=== PATIENT | female | born 1965 | race Caucasian/White ===

== ENCOUNTER 2019-10-31 00:44 | Emergency (ER) | payer MEDICAID ==
[~2019-10-31] VITALS: Ht 157.5 cm; Wt 85.3 kg
[2019-10-31 00:48] VITALS: BP 118/79
[2019-10-31 01:22] LABS: BASOPHILS % (AUTO) 0.5 % (0.0-2.0); EOSINOPHILS # (AUTO) 0.4 K/uL (0-0.4); EOSINOPHILS % (AUTO) 4.5 % (0.0-4.0); HEMATOCRIT 36.9 % (36-48); HEMOGLOBIN 12.5 g/dL (12.0-16.0); LYMPHOCYTES # (AUTO) 3.2 K/uL (2.5-16.5); LYMPHOCYTES % (AUTO) 40.1 % (20.5-51.1); MEAN CORPUSCULAR HEMOGLOBIN 31 pg (27-31); MEAN CORPUSCULAR HGB CONC 34 g/dL (33-37); MEAN CORPUSCULAR VOLUME 89.8 fL (80-94); MONOCYTES # (AUTO) 0.5 K/uL (0.8-1.0); MONOCYTES % (AUTO) 6.6 % (1.7-9.3); NEUTROPHILS # (AUTO) 3.8 K/uL (1.8-7.7); NEUTROPHILS % (AUTO) 48.3 % (42.2-75.2); PLATELET COUNT (AUTO) 315 K/uL (140-450); RED BLOOD CELL COUNT(AUTO) 4.11 MIL/uL (4.20-5.40); RED CELL DISTRIBUTION WIDTH 13.4 % (11.6-13.7); WHITE BLOOD COUNT (AUTO) 7.9 K/uL (4.8-10.8)
[2019-10-31] MEDS: NACL 0.9% 500 ML IV ONE (01:36)
[2019-10-31] MEDS: ONDANSETRON 4 MG/2 ML VIAL IVP ONE (01:37)
[2019-10-31 01:39] LABS: ALBUMIN 3.6 g/dL (3.4-5.0); ANION GAP 13.5 (8-16); CARBON DIOXIDE 23.8 mmol/L (21-32); POTASSIUM 4.3 mmol/L (3.5-5.1); TOTAL BILIRUBIN 0.3 mg/dL (0.0-1.0)
[2019-10-31] MEDS: PANTOPRAZOLE 40 MG INJ VIAL IVP ONE (01:44)
[2019-10-31] MEDS: DICYCLOMINE HCL LIQUID 10 MG/5 ML UDC PO ONE (01:44)
[2019-10-31] MEDS: ALUMINUM HYD/MAG/SIMETHICONE 30 ML UDC PO ONE (01:45)
[2019-10-31] MEDS: LIDOCAINE VISCOUS 2% 20 ML UDC PO ONE (01:45)
[2019-10-31 02:11] VITALS: BP 117/68
== END 2019-10-31 02:11 | disposition home or self-care (01) ==
LOC: MED 00:44
DX: K29.70 Gastritis, unspecified, without bleeding (principal); E11.9 Type 2 diabetes mellitus without complications; I10 Essential (primary) hypertension; E07.9 Disorder of thyroid, unspecified
CPT/HCPCS: 36415; 71045; 80053; 81002; 81025; 83690; 84484; 85025; 93005; 96361; 96374; 96375; 99285; C9113; J2405; J7030; Q0092

== ENCOUNTER 2019-11-25 04:23 | Emergency (ER) | payer MEDICAID ==
[~2019-11-25] VITALS: Ht 160 cm; Wt 84.9 kg
[2019-11-25 04:30] VITALS: BP 120/82
--- NOTE | 2019-11-25 04:43 | NUR ---
ERMD VARGAS AT BEDSIDE EVALUATING PT.
--- NOTE | 2019-11-25 04:55 | NUR ---
54 Y/O F C/O FACIAL NUMBNESS X O1OO TODAY AND LT KNEE PAIN X1 YR. LT FACIAL NUMBNESS, ASYMMETRICAL SMILE, LOST OF MOTOR SENSORY ON LT SIDE OF FACE, SPEECH CLEAR. AAO X4. EQUAL STRENGTH AND SENSATION ON BUE AND BLE. LFT KNEE SHOWS SWELLING AND PAIN DURING PALPATION. NO OBVIOUS DEFORMITY ON KNEE OR EXTREMITIES. VSS. STEADY GAIT. ABD ACTIVE BOWEL SOUNDS, ROUND SOFT, EPIGASTRIC TENDERNESS. HX: DIABETES, HTN, HYPERTHYROID, GERD, SCIATICA ALLERGIES: NONE
[2019-11-25] MEDS ORDERED: DICYCLOMINE HCL LIQUID 20 MG, ALUMINUM HYD/MAG/SIMETHICONE 30 ML, LIDOCAINE VISCOUS 2% ... PO ONE ×3 (05:35)
[2019-11-25] MEDS ORDERED: LIDOCAINE VISCOUS 2% 20 ML UDC ONE (05:37)
[2019-11-25] MEDS ORDERED: DICYCLOMINE HCL LIQUID 10 MG/5 ML UDC ONE (05:38)
[2019-11-25] MEDS ORDERED: ALUMINUM HYD/MAG/SIMETHICONE 30 ML UDC ONE (05:38)
[2019-11-25 05:56] VITALS: BP 120/82
--- NOTE | 2019-11-25 05:56 | NUR ---
Patient discharged with v/s stable. Written and verbal after care instructions given and explained. Patient alert, oriented and verbalized understanding of instructions. Ambulatory with steady gait. All questions addressed prior to discharge. ID band removed. Patient advised to follow up with PMD. Rx of PREDNISONE, VISINE OPHTHALMIC SOLUTION, VALTREX given. Patient educated on indication of medication including possible reaction and side effects. Opportunity to ask questions provided and answered.
== END 2019-11-25 05:56 | disposition home or self-care (01) ==
LOC: MED 04:23
DX: G51.0 Bell's palsy (principal); M25.562 Pain in left knee; E11.9 Type 2 diabetes mellitus without complications; E07.9 Disorder of thyroid, unspecified; I10 Essential (primary) hypertension
CPT/HCPCS: 99283

== ENCOUNTER 2020-02-13 10:22 | Emergency (ER) | payer MEDICAID ==
[~2020-02-13] VITALS: Ht 160 cm; Wt 85.3 kg
[2020-02-13 10:28] VITALS: BP 114/70
--- NOTE | 2020-02-13 10:49 | NUR ---
54 Y/O FEMALE PRESENTED TO ED C/O LEFT KNEE PAIN X 5 DAYS . PT DENIES FALLING OR ANY TRAUMA TO KNEE. PT STATES IT HAS BEEN GETTING PROGRESSIVELY WORSE SINCE MONDAY AND WENT TO WORK THIS MORNING AND IT WAS REALLY SWOLLEN. OBSERVED SWELLING NOTED AROUND LEFT KNEE. PT STATES STABBING PAIN 10/10. PT C/O NUMBNESS AND TINGLING ON LEFT FEET. PEDAL PULSES BL STRONG +2 , CAP REFIL <3 SEC. PT DAUGHTER STATES SHE GAVE HER MOTHER IBUPROFEN AROUND 8 THIS MORNING . PT LAYING IN BED AT LOWEST POSITION, hob ELEVATED , SIDE RAIL X1 , DAUGHTER AT BEDSIDE. PMH: HTN, DM, hYPOTHY NKA
--- NOTE | 2020-02-13 10:57 | NUR ---
XRAY AT BEDSIDE.
[2020-02-13] MEDS ORDERED: LIDOCAINE/EPI 1% 1:100000 20 ML VIAL INJ ONE (11:30)
--- NOTE | 2020-02-13 11:31 | NUR ---
MEDICATION PULLED AT PUT AT BEDSIDE, DR. POSADA MADE AWARE.
--- NOTE | 2020-02-13 11:52 | NUR ---
ERMD AT BEDSIDE.
[2020-02-13 12:47] VITALS: BP 113/68
--- NOTE | 2020-02-13 12:47 | NUR ---
Patient discharged with v/s stable. Written and verbal after care instructions given and explained. Patient alert, oriented and verbalized understanding of instructions. Ambulatory with steady gait. All questions addressed prior to discharge. ID band removed. Patient advised to follow up with PMD. Rx of norco 5mg-325mg given. Patient educated on indication of medication including possible reaction and side effects. Opportunity to ask questions provided and answered.
== END 2020-02-13 12:47 | disposition home or self-care (01) ==
LOC: MED 10:22
DX: M17.12 Unilateral primary osteoarthritis, left knee (principal); E11.9 Type 2 diabetes mellitus without complications; I10 Essential (primary) hypertension
CPT/HCPCS: 20610; 73562; 99284; J2001; Q0092; 10021

== ENCOUNTER 2020-04-09 17:10 | Emergency (ER) | payer MEDICAID ==
[~2020-04-09] VITALS: Ht 157.5 cm; Wt 82.6 kg
[2020-04-09 17:14] VITALS: BP 143/78
--- NOTE | 2020-04-09 17:19 | NUR ---
PATIENT AMBULATED TO BED 6.
--- NOTE | 2020-04-09 17:27 | NUR ---
X-RAY IS AT BEDSIDE.
--- NOTE | 2020-04-09 17:30 | NUR ---
PT C/O LT KNEE PAIN SINCE YESTERDAY, DENIES TRAUMA/INJURY. REPORTS HAD KNEE EXPIRATION ONE MONTH AGO WITH YELLOWISH FLUID. SLIGHT EDEMA W/O ERYTHEMA OR DEFORMITY NOTICED. PT HAS REDUCED ROM ON PASSIVE MOVEMENT. CAN AMBULATE WITH STEADY GAIT. PT DENIES ANY FEVER, CP, SOB, OR COUGH AT THIS TIME; PATIENT STATES PAIN OF 10/10 AT THIS TIME; VSS; PATIENT POSITIONED FOR COMFORT; HOB ELEVATED; BEDRAILS UP X1; BED DOWN. ER MD MADE AWARE OF PT STATUS.
[2020-04-09 18:26] VITALS: BP 121/79
== END 2020-04-09 18:26 | disposition home or self-care (01) ==
LOC: MED 17:10
DX: M17.12 Unilateral primary osteoarthritis, left knee (principal); M25.462 Effusion, left knee; E07.9 Disorder of thyroid, unspecified; I10 Essential (primary) hypertension; E11.9 Type 2 diabetes mellitus without complications
CPT/HCPCS: 73562; 99283

== ENCOUNTER 2020-12-11 04:34 | Emergency (ER) | payer MEDICAID, SELFPAY ==
[~2020-12-11] VITALS: Ht 160 cm; Wt 81.6 kg
[~2020-12-11 04:34] MED LIST: CIPR500T4 PO; INSU100S22 SUBQ; LEVO0.179 PO; LISI-487 PO; METF1000 PO
[2020-12-11 04:42] VITALS: BP 117/76
--- NOTE | 2020-12-11 04:49 | NUR ---
PT AMBULATORY TO BED #1
--- NOTE | 2020-12-11 05:00 | NUR ---
PATIENT 55 Y/O FEMALE BIB SELF FOR C/O L KNEE PAIN 10. PATIENT STATES PAIN HAS BEEN CHRONIC X 1 YEAR BUT PAIN 10/10 X 1 DAY. PATIENT STATES HAD I&D DONE FROM KNEE X 1 YEAR AGO, "IT FEELS LIKE THE SAME THING IS HAPPENING AGAIN." PATIENT STATES PAIN IS PROVIOKED BY WALING. PATIENT DENIES ANY OTC MEDICATIONS TAKEN PRIOR TO ARRIVAL. PATIENT NOTED WITH SWELLING AROUND L KNEE. CMS INTACT, PEDAL PULSES STRONG AND EQUAL BILAT LE. CAP REFILL <3. PATIENT DENIES ANY FALL OR INJURY TO PRECIPITATE PAIN. MEDHX:DM TYPE II, HTN, HYPERTHYROID. ALLERGIES: NKA
--- NOTE | 2020-12-11 05:42 | NUR ---
ERMD AT BEDSIDE EVALUIATING PATIENT.
[2020-12-11] MEDS ORDERED: NAPR-54 PO (05:49)
--- NOTE | 2020-12-11 06:07 | NUR ---
REPORT RECEIVED FROM GALDINO COPPOLA
--- NOTE | 2020-12-11 06:10 | NUR ---
PT AMBULATED TO BED 12
[2020-12-11 06:30] VITALS: BP 117/76
== END 2020-12-11 06:30 | disposition home or self-care (01) ==
LOC: MED 04:34
DX: M17.12 Unilateral primary osteoarthritis, left knee (principal); E11.9 Type 2 diabetes mellitus without complications; I10 Essential (primary) hypertension; E07.9 Disorder of thyroid, unspecified; Z79.899 Other long term (current) drug therapy
CPT/HCPCS: 99282

== ENCOUNTER 2021-04-14 11:55 | Emergency (ER) | payer MEDICAID, SELFPAY ==
[~2021-04-14] VITALS: Ht 160 cm; Wt 81.2 kg
[~2021-04-14 11:55] MED LIST changes: +NAPR-54 PO
[2021-04-14 12:00] VITALS: BP 140/94
[2021-04-14] MEDS ORDERED: FAMOTIDINE 20 MG TAB PO ONE (12:25)
[2021-04-14] MEDS ORDERED: ONDANSETRON 4 MG ODT PO ONE (12:25)
[2021-04-14] MEDS ORDERED: FAMOTIDINE 20 MG TAB ONE (12:27)
[2021-04-14] MEDS ORDERED: ONDANSETRON 4 MG ODT ONE (12:27)
--- NOTE | 2021-04-14 12:40 | NUR ---
LABS DRAWN AND SENT TO LAB.
--- NOTE | 2021-04-14 12:45 | NUR ---
PT MEDICATED AND SENT BACK TO LOBBY TO WAIT FOR AVAILABLE BED.
[2021-04-14 12:50] LABS: BASOPHILS % (AUTO) 0.5 % (0.0-2.0); EOSINOPHILS # (AUTO) 0.1 K/uL (0-0.4); EOSINOPHILS % (AUTO) 1.3 % (0.0-4.0); HEMATOCRIT 37.9 % (36-48); HEMOGLOBIN 12.7 g/dL (12.0-16.0); LYMPHOCYTES # (AUTO) 1.9 K/uL (2.5-16.5); LYMPHOCYTES % (AUTO) 22.1 % (20.5-51.1); MEAN CORPUSCULAR HEMOGLOBIN 31 pg (27-31); MEAN CORPUSCULAR HGB CONC 34 g/dL (33-37); MONOCYTES # (AUTO) 0.3 K/uL (0.8-1.0); MONOCYTES % (AUTO) 3.6 % (1.7-9.3); NEUTROPHILS # (AUTO) 6.2 K/uL (1.8-7.7); NEUTROPHILS % (AUTO) 72.5 % (42.2-75.2); PLATELET COUNT (AUTO) 414 K/uL (140-450); RED BLOOD CELL COUNT(AUTO) 4.11 MIL/uL (4.20-5.40); RED CELL DISTRIBUTION WIDTH 13.6 % (11.6-13.7); WHITE BLOOD COUNT (AUTO) 8.5 K/uL (4.8-10.8)
[2021-04-14 13:05] LABS: ALBUMIN 3.7 g/dL (3.4-5.0); ANION GAP 12.5 (8-16); CREATININE 1.3 mg/dL (0.6-1.3); POTASSIUM 4.5 mmol/L (3.5-5.1); TOTAL BILIRUBIN 0.4 mg/dL (0.0-1.0)
[2021-04-14] MEDS ORDERED: FAMO-92 PO (14:21)
[2021-04-14] MEDS ORDERED: ONDA-24 PO (14:21)
--- NOTE | 2021-04-14 14:41 | NUR ---
Patient discharged with v/s stable. Written and verbal after care instructions given and explained. Patient alert, oriented and verbalized understanding of instructions. Ambulatory with steady gait. All questions addressed prior to discharge. ID band removed. Patient advised to follow up with PMD. Rx of FAMOTIDINE, ONDANSETRON given. Patient educated on indication of medication including possible reaction and side effects. Opportunity to ask questions provided and answered.
[2021-04-14 14:44] VITALS: BP 140/94
--- NOTE | 2021-04-14 14:44 | NUR ---
55 Y/O F BIB FAMILY FROM HOME, C/O EPIGASTRIC PAIN WITH N&V 4 DAYS 10 SHARP. DENIES SOB, COUGH, CP, FEVERS, DYSURIA, DIARRHEA OR CONSTIPATION. SKIN IS PINK/WARM/DRY; AAOX4 WITH EVEN AND STEADY GAIT; LUNGS CLEAR BL; HR EVEN AND REGULAR; PT DENIES ANY FEVER, CP, SOB, OR COUGH AT THIS TIME; VSS; ER MD MADE AWARE OF PT STATUS. PMH: HTN, DM2, HYPERTHYROID MED: METFORMIN NKA
== END 2021-04-14 14:41 | disposition home or self-care (01) ==
LOC: MED 11:55
DX: K29.70 Gastritis, unspecified, without bleeding (principal); R11.0 Nausea; E11.9 Type 2 diabetes mellitus without complications; I10 Essential (primary) hypertension; E07.9 Disorder of thyroid, unspecified; Z79.4 Long term (current) use of insulin; Z79.899 Other long term (current) drug therapy; Z98.890 Other specified postprocedural states
CPT/HCPCS: 36415; 76705; 80053; 83690; 85025; 99284; Q0162

== ENCOUNTER 2022-02-14 16:40 | Emergency (ER) | payer MEDICAID ==
[~2022-02-14] VITALS: Ht 160 cm; Wt 81.2 kg
[~2022-02-14 16:40] MED LIST changes: +FAMO-92 PO; +METF-1274 PO; -METF1000 PO; +ONDA-188 PO
[2022-02-14 16:47] VITALS: BP 132/81
[2022-02-14 17:21] LABS: BASOPHILS % (AUTO) 0.5 % (0.0-2.0); EOSINOPHILS # (AUTO) 0.3 K/uL (0-0.4); EOSINOPHILS % (AUTO) 3.6 % (0.0-4.0); HEMATOCRIT 40.2 % (36-48); HEMOGLOBIN 13.4 g/dL (12.0-16.0); LYMPHOCYTES # (AUTO) 2.8 K/uL (2.5-16.5); LYMPHOCYTES % (AUTO) 31.1 % (20.5-51.1); MEAN CORPUSCULAR HEMOGLOBIN 30 pg (27-31); MEAN CORPUSCULAR HGB CONC 34 g/dL (33-37); MEAN CORPUSCULAR VOLUME 88.8 fL (80-94); MONOCYTES # (AUTO) 0.5 K/uL (0.8-1.0); MONOCYTES % (AUTO) 6.2 % (1.7-9.3); NEUTROPHILS # (AUTO) 5.2 K/uL (1.8-7.7); NEUTROPHILS % (AUTO) 58.6 % (42.2-75.2); PLATELET COUNT (AUTO) 327 K/uL (140-450); RED BLOOD CELL COUNT(AUTO) 4.52 MIL/uL (4.20-5.40); RED CELL DISTRIBUTION WIDTH 14.1 % (11.6-13.7); WHITE BLOOD COUNT (AUTO) 8.9 K/uL (4.8-10.8)
[2022-02-14 19:14] LABS: ALBUMIN 3.7 g/dL (3.4-5.0); ANION GAP 16.8 (8-16); CARBON DIOXIDE 23.3 mmol/L (21-32); CREATININE 1.7 mg/dL (0.6-1.3); POTASSIUM 5.1 mmol/L (3.5-5.1); TOTAL BILIRUBIN 0.3 mg/dL (0.0-1.0)
--- NOTE | 2022-02-14 19:36 | NUR ---
PT TAKEN TO BED 1
[2022-02-14] MEDS ORDERED: FAMOTIDINE 20 MG/2 ML VIAL IVP ONE (19:40)
[2022-02-14] MEDS ORDERED: ONDANSETRON 4 MG/2 ML VIAL IVP ONE (19:40)
[2022-02-14] MEDS ORDERED: NACL 0.9% 1,000 ML IV ONE (19:40)
[2022-02-14] MEDS ORDERED: SUCRALFATE 1 GM TAB PO SCH (19:40)
--- NOTE | 2022-02-14 19:50 | NUR ---
56/F C/O EPIGASTRIC PAIN AND NAUSEA X4 DAYS, REPORTS ONE EPISODE OF VOMITING YESTERDAY. STATES SHE TOOK MEDICATION FOR SYMPTOMS WITH NO RELIEF, DENIES DIARRHEA, CP, SOB. VITALS WNL, A&OX4 PMH: HTN, DM, THYROID NKA
[2022-02-14] MEDS ORDERED: BLOOD GLUCOSE MONITORING 1 DEV DEV FS ONE (19:55)
[2022-02-14] MEDS ORDERED: INSULIN LISPRO 100 UNITS/ML VIAL SUBQ ONE (19:55)
[2022-02-14] MEDS ORDERED: SUCR1TAB35 PO (20:53)
[2022-02-14] MEDS ORDERED: PANT40EC PO (20:53)
[2022-02-14 21:19] VITALS: BP 132/81
--- NOTE | 2022-02-14 21:20 | NUR ---
Patient discharged with v/s stable. Written and verbal after care instructions given and explained. Patient alert, oriented and verbalized understanding of instructions. Ambulatory with steady gait. All questions addressed prior to discharge. ID band removed. Patient advised to follow up with PMD. Rx of PROTONIX AND CARAFATE given. Patient educated on indication of medication including possible reaction and side effects. Opportunity to ask questions provided and answered.
== END 2022-02-14 21:20 | disposition home or self-care (01) ==
LOC: MED 16:40
DX: K29.70 Gastritis, unspecified, without bleeding (principal); E11.65 Type 2 diabetes mellitus with hyperglycemia; I10 Essential (primary) hypertension; E03.9 Hypothyroidism, unspecified; Z79.4 Long term (current) use of insulin; Z90.710 Acquired absence of both cervix and uterus
CPT/HCPCS: 36415; 80053; 83690; 85025; 96361; 96372; 96374; 96375; 99284; J1815; J2405; J3490; J7030

== ENCOUNTER 2022-07-12 11:36 | Emergency (ER) | payer MEDICAID ==
[~2022-07-12] VITALS: Ht 160 cm; Wt 84.8 kg
[~2022-07-12 11:36] MED LIST changes: +PANT40EC PO; +SUCR1TAB35 PO
[2022-07-12 11:45] VITALS: BP 151/93
--- NOTE | 2022-07-12 11:59 | NUR ---
PATIENT AMBULATED TO BED 10
--- NOTE | 2022-07-12 12:00 | NUR ---
Dr. Draper at bedside evaluating patient.
[2022-07-12] MEDS ORDERED: BACITRACIN OINT 500 UNITS/GM PKT TP ONE (12:05)
[2022-07-12] MEDS ORDERED: LIDOCAINE MPF 1% 10 MG/ML VIAL INJ ONE (12:05)
--- NOTE | 2022-07-12 13:05 | NUR ---
Patient taken via guyney for CT scan, Kylah RN with patient.
--- NOTE | 2022-07-12 13:07 | NUR ---
Babatunde munoz in ED - 07/12/[address] Drapre at bedside evaluating patient.
[2022-07-12] MEDS ORDERED: BACI1PAC6 TP (13:33)
[2022-07-12] MEDS ORDERED: CEPH-588 PO (13:33)
[2022-07-12] MEDS ORDERED: ACET-10509 PO (13:33)
--- NOTE | 2022-07-12 13:38 | NUR ---
57/Y/O FEMALE BIB SELF C/O LACERATION TO LEFT INDEX FINGER WHILE USING A KNIFE AT WORK, BLEEDING CONTROLLED WITH PRESSURE, NOTED OOZING BLOOD. NON-ADHERENT WITH COBAN PLACED ON AREA FOR PRESSURE PER ERMD. PMH: HTN, DM, THYROID NKDA
--- NOTE | 2022-07-12 13:41 | NUR ---
NON ADHERENT PLACED ON L INDEX FINGER. + CMS
--- NOTE | 2022-07-12 14:01 | NUR ---
Patient discharged with v/s stable. Written and verbal after care instructions ABOUT LACERATION CARE given and explained. Patient alert, oriented and verbalized understanding of instructions. Ambulatory with steady gait. All questions addressed prior to discharge. ID band removed. Patient advised to follow up with PMD. Rx of TYLENOL EXTRA STRENGTH, KEFLEX AND BACITRACIN OINTMENT given. Patient educated on indication of medication including possible reaction and side effects. Opportunity to ask questions provided and answered.
== END 2022-07-12 14:01 | disposition home or self-care (01) ==
LOC: MED 11:36
DX: S61.211A Laceration without foreign body of left index finger without damage to nail, initial encounter (principal); W26.0XXA Contact with knife, initial encounter; Y93.89 Activity, other specified; Y92.89 Other specified places as the place of occurrence of the external cause; Y99.8 Other external cause status
CPT/HCPCS: 12001; 90471; 90715; 99283; J2001

== ENCOUNTER 2022-07-14 10:13 | Emergency (ER) | payer MEDICAID ==
[~2022-07-14] VITALS: Ht 160 cm; Wt 84.5 kg
[~2022-07-14 10:13] MED LIST changes: +ACET-10509 PO; +BACI1PAC6 TP; +CEPH-588 PO
[2022-07-14 10:20] VITALS: BP 137/96
--- NOTE | 2022-07-14 10:28 | NUR ---
PT AMB TO BED 4.
--- NOTE | 2022-07-14 11:16 | NUR ---
Patient discharged with v/s stable. Written and verbal after care instructions given and explained. Patient verbalized understanding. Ambulatory with steady gait. All questions addressed prior to discharge. Advised to follow up with PMD.
== END 2022-07-14 11:17 | disposition home or self-care (01) ==
LOC: MED 10:13
DX: S61.211D Laceration without foreign body of left index finger without damage to nail, subsequent encounter (principal); E11.9 Type 2 diabetes mellitus without complications; I10 Essential (primary) hypertension; Z79.899 Other long term (current) drug therapy; Z79.2 Long term (current) use of antibiotics; Z79.1 Long term (current) use of non-steroidal anti-inflammatories (NSAID); Z79.4 Long term (current) use of insulin; W45.8XXD Other foreign body or object entering through skin, subsequent encounter
CPT/HCPCS: 99281

== ENCOUNTER 2022-07-21 14:30 | Emergency (ER) | payer MEDICAID ==
[~2022-07-21] VITALS: Ht 157.5 cm; Wt 85.3 kg
[2022-07-21 14:36] VITALS: BP 140/90
--- NOTE | 2022-07-21 14:51 | NUR ---
57/F WALKED IN FOR SUTURE REMOVAL OF LEFT HAND 2ND DIGIT. PT WAS SEEN 10 DAYS AGO FOR LAC. DENIES ANY COMPLICATIONS SINCE LAST VISIT. SITE DOES NOT APPEAR SWOLLEN, NO DISCHARGE NOTED. AAO4, AMBULATORY, VITALS STABLE. pmh: htn, dm2 nka med: denies
== END 2022-07-21 15:10 | disposition home or self-care (01) ==
LOC: MED 14:30
DX: S61.211D Laceration without foreign body of left index finger without damage to nail, subsequent encounter (principal); E11.9 Type 2 diabetes mellitus without complications; I10 Essential (primary) hypertension; Z79.899 Other long term (current) drug therapy; Z79.4 Long term (current) use of insulin; X58.XXXD Exposure to other specified factors, subsequent encounter
CPT/HCPCS: 99281

== ENCOUNTER 2022-08-23 17:46 | Inpatient (IN) | payer MEDICAID ==
[~2022-08-23] VITALS: Ht 160 cm; Wt 82.6 kg
[~2022-08-23 17:46] MED LIST changes: +BACI-416 TP; -BACI1PAC6 TP
[2022-08-23 18:07] VITALS: BP 140/102
[2022-08-23] MEDS ORDERED: NACL 0.9% 1,000 ML IV ONE ×2 (18:10→21:40)
[2022-08-23 18:57] LABS: BASOPHILS # (AUTO) 0.1 K/uL (0.00-0.22); BASOPHILS % (AUTO) 0.6 % (0.0-2.0); EOSINOPHILS # (AUTO) 0.4 K/uL (0-0.4); EOSINOPHILS % (AUTO) 3.9 % (0.0-4.0); HEMATOCRIT 33.8 % (36-48); HEMOGLOBIN 11.4 g/dL (12.0-16.0); LYMPHOCYTES # (AUTO) 3.3 K/uL (2.5-16.5); LYMPHOCYTES % (AUTO) 30.9 % (20.5-51.1); MEAN CORPUSCULAR HEMOGLOBIN 30 pg (27-31); MEAN CORPUSCULAR HGB CONC 34 g/dL (33-37); MEAN CORPUSCULAR VOLUME 89.4 fL (80-94); MONOCYTES # (AUTO) 0.7 K/uL (0.8-1.0); NEUTROPHILS # (AUTO) 6.1 K/uL (1.8-7.7); NEUTROPHILS % (AUTO) 57.6 % (42.2-75.2); PLATELET COUNT (AUTO) 358 K/uL (140-450); RED BLOOD CELL COUNT(AUTO) 3.78 MIL/uL (4.20-5.40); RED CELL DISTRIBUTION WIDTH 14.1 % (11.6-13.7); WHITE BLOOD COUNT (AUTO) 10.5 K/uL (4.8-10.8)
[2022-08-23 19:19] LABS: ALBUMIN 2.8 g/dL (3.4-5.0); ANION GAP 13.6 (8-16); ASPARTATE AMINOTRANSFERASE 33 U/L (15-37); CARBON DIOXIDE 26.7 mmol/L (21-32); CHLORIDE 97 mmol/L (98-107); CREATININE 1.9 mg/dL (0.6-1.3); GFR ARICAN-AMERICAN 35 mL/min (>90); POTASSIUM 4.3 mmol/L (3.5-5.1); SODIUM SERUM 133 mmol/L (136-145); TOTAL BILIRUBIN 0.3 mg/dL (0.0-1.0); UREA NITROGEN, BLOOD 25 mg/dL (7-18)
[2022-08-23 19:21] LABS: GLUCOSE 461 mg/dL (74-106)
--- NOTE | 2022-08-23 19:45 | NUR ---
Assumed care of pt and pt is in bed resting with no s/s of distress. A&Ox4. VSS. Pt has no c/o at this time. Skin intact. Ambualtory with steady gait. Deneis n.v. No chest pain and no sob. Has a 22g IV on right forearm intact no infiltration noted. Bed in lowest position.
[2022-08-23] MEDS ORDERED: INSULIN REGULAR, HUMAN 100 UNIT/ML VIAL IVP ONE (19:50)
--- NOTE | 2022-08-23 20:00 | NUR ---
Urine collected and sent to lab.
[2022-08-23 20:05] LABS: ACETONE, SERUM NEGATIVE (NEGATIVE)
[2022-08-23 20:26] LABS: BILIRUBIN,URINE NEGATIVE (NEGATIVE); BLOOD, URINE TRACE-I (NEGATIVE); COLOR,URINE YELLOW (YELLOW); LEUKOCYTE ESTERASE ,URINE 1+ (NEGATIVE); NITRITE, URINE NEGATIVE (NEGATIVE); UGLUCOSE 3+ (NEGATIVE)
[2022-08-23 20:44] LABS: APPEARANCE,URINE HAZY (CLEAR)
--- NOTE | 2022-08-23 20:46 | NUR ---
Covid and flu swab sent to lab.
[2022-08-23] MEDS ORDERED: INSULIN REGULAR, HUMAN 100 UNIT/ML VIAL SUBQ ONE (21:40)
--- NOTE | 2022-08-23 21:41 | NUR ---
Accucheck done and results were 411. ER physician notified.
[2022-08-23 21:46] LABS: RBC,URINE 0-5 /HPF (0-5); YEAST,URINE Few /HPF (None Seen)
--- NOTE | 2022-08-23 23:11 | NUR ---
Accucheck done and results were 341. ER physician notified.
[2022-08-24] MEDS ORDERED: DEXTROSE 50% 50 ML SYR IVP PRN (00:05)
[2022-08-24] MEDS ORDERED: ONDANSETRON 4 MG/2 ML VIAL IVP PRN (00:05)
[2022-08-24] MEDS: NACL 0.9% 1,000 ML IV SCH ×3 (00:48→20:05)
[2022-08-24] MEDS ORDERED: EMPA10TA PO (01:05)
[2022-08-24] MEDS ORDERED: LISI40TA12 PO (01:05)
--- NOTE | 2022-08-24 01:05 | NUR ---
Medication reconciliation completed and was provided by patients family.
--- NOTE | 2022-08-24 04:44 | NUR ---
Pt resting in bed with no s/s of distress. Pt has no c/o at this time. A&Ox4. VSS.
[2022-08-24] MEDS ORDERED: LEVOTHYROXINE 0.075 MG TAB PO SCH (06:30)
[2022-08-24] MEDS: LEVOTHYROXINE 0.1 MG TAB PO SCH (06:52)
--- NOTE | 2022-08-24 07:18 | NUR ---
Received report from GALDINO Lagos. Assumed care at this.
[2022-08-24] MEDS ORDERED: metFORMIN 500 MG TAB PO SCH (08:00)
[2022-08-24] MEDS: LEVOTHYROXINE 0.075 MG TAB PO SCH (08:05)
[2022-08-24] MEDS: BLOOD GLUCOSE MONITORING 1 DEV DEV FS SCH ×4 (08:06→21:18)
[2022-08-24] MEDS: INSULIN LISPRO SLIDING SCALE 100 UNITS/ML VIAL SUBQ PRN ×4 (08:16→21:25)
--- NOTE | 2022-08-24 08:32 | NUR ---
ADPatient will be admitted to care of DR BLACK. Admited to Med/Surg. Will go to room 106A. Belongings list completed. Report to GALDINO MORENO.
[2022-08-24] MEDS ORDERED: ENOXAPARIN 40 MG/0.4 ML SYR SUBQ SCH (09:00)
[2022-08-24] MEDS: PANTOPRAZOLE 40 MG TABEC PO SCH (09:57)
[2022-08-24] MEDS: lisinopriL 20 MG TAB PO SCH (09:57)
[2022-08-24] MEDS: ENOXAPARIN 30 MG/0.3 ML SYR SUBQ SCH (09:58)
[2022-08-24 10:42] LABS: ANION GAP 11.7 (8-16); CARBON DIOXIDE 25.8 mmol/L (21-32); CREATININE 1.8 mg/dL (0.6-1.3); POTASSIUM 5.5 mmol/L (3.5-5.1)
[2022-08-24 10:51] LABS: BASOPHILS # (AUTO) 0.1 K/uL (0.00-0.22); EOSINOPHILS # (AUTO) 0.3 K/uL (0-0.4); EOSINOPHILS % (AUTO) 3.8 % (0.0-4.0); HEMATOCRIT 32.5 % (36-48); HEMOGLOBIN 10.8 g/dL (12.0-16.0); LYMPHOCYTES # (AUTO) 2.5 K/uL (2.5-16.5); LYMPHOCYTES % (AUTO) 27.4 % (20.5-51.1); MEAN CORPUSCULAR HEMOGLOBIN 30 pg (27-31); MEAN CORPUSCULAR HGB CONC 33 g/dL (33-37); MEAN CORPUSCULAR VOLUME 91.5 fL (80-94); MONOCYTES # (AUTO) 0.6 K/uL (0.8-1.0); MONOCYTES % (AUTO) 6.6 % (1.7-9.3); NEUTROPHILS # (AUTO) 5.5 K/uL (1.8-7.7); NEUTROPHILS % (AUTO) 61.2 % (42.2-75.2); PLATELET COUNT (AUTO) 368 K/uL (140-450); RED BLOOD CELL COUNT(AUTO) 3.55 MIL/uL (4.20-5.40); RED CELL DISTRIBUTION WIDTH 14.8 % (11.6-13.7); WHITE BLOOD COUNT (AUTO) 9.1 K/uL (4.8-10.8)
--- NOTE | 2022-08-24 11:52 | NUR ---
PATIENT HAS BEEN SCREENED AND CATEGORIZED MODERATE NUTRITION RISK. PATIENT WILL BE SEEN WITHIN 3-5 DAYS OF ADMISSION. 08/27/2212/19/[address]
[2022-08-24 12:00] VITALS: BP 128/81
[2022-08-24] MEDS: ACETAMINOPHEN 325 MG TAB PO PRN ×2 (12:16→22:55)
[2022-08-24 16:00] VITALS: BP 132/68
--- NOTE | 2022-08-24 19:30 | NUR ---
RECEIVED REPORT FROM DAY SHIFT NURSE TIFFANIE FOR CONTINUITY OF CARE. PATIENT IS A&O X4. PATIENT IS ON ROOM AIR, BREATHING IS NORMAL WITH SYMMETRICAL RISE AND FALL OF CHEST. PATIENT'S IV IS A 22G RFA, RUNNING NS 100. PATIENT IS SLEEPING, LYING SUPINE ON HER SIDE. BED IS IN LOWEST POSITION, WHEELS LOCKED, CALL LIGHT IN PLACE. WILL CONTINUE TO OBSERVE PATIENT.
[2022-08-24 20:00] VITALS: BP 105/63
[2022-08-24] MEDS ORDERED: INSULIN LANTUS 100 UNITS/ML 10 ML VIAL SUBQ SCH (21:00)
--- NOTE | 2022-08-24 21:30 | NUR ---
OBTAINED PATIENT'S BS; BS WAS 270, ADMINISTERED 6 UNITS OF HUMALOG FOR COVERAGE. ADMINISTER PATIENT'S SCHEDULED LANTUS 30 UNITS. PATIENT TOLERATED INJECTIONS WELL. WILL CONTINUE TO OBSERVE PATIENT.
--- NOTE | 2022-08-24 23:00 | NUR ---
PATIENT CALLED AND REQUESTED TYLENOL FOR HEADACHE. CHECKED PATIENT'S CHART, TYLENOL WAS APPROPRIATE TO GIVE. ADMINISTERED TYLENOL TO PATIENT. PATIENT TOLERATED WELL. PATIENT'S BREATHING IS NORMAL WITH SYMMETRICAL RISE AND FALL OF CHEST. WILL CONTINUE TO OBSERVE PATIENT.
--- NOTE | 2022-08-25 00:30 | NUR ---
LOOKED IN ON PATIENT. PATIENT WAS SLEEPING, LYING IN SEMI-FOWLERS POSITION. BREATHING WAS NORMAL WITH SYMMETRICAL RISE AND FALL OF CHEST. IV WAS RUNNING NS AT 100. WILL CONTINUE TO OBSERVE PATIENT.
[2022-08-25] MEDS: NACL 0.9% 1,000 ML IV SCH (02:18)
--- NOTE | 2022-08-25 02:22 | NUR ---
WENT INTO PATIENT'S ROOM AND CHANGED PATIENT'S IV BAG. IV IS RUNNING NS AT 100. PATIENT IS SLEEPING, LYING SEMI-FOWLERS. BREATHING IS NORMAL WITH SYMMETRICAL RISE AND FALL OF CHEST. WILL CONTINUE TO OBSERVE PATIENT.
[2022-08-25 04:00] VITALS: BP 106/69
--- NOTE | 2022-08-25 04:45 | NUR ---
LOOKED IN ON PATIENT. PATIENT WAS SLEEPING, LYING SEMI-FOWLERS POSITION. BREATHING WAS NORMAL WITH SYMMETRICAL RISE AND FALL OF CHEST. IV WAS RUNNING NS 100. WILL CONTINUE TO OBSERVE PATIENT.
[2022-08-25 06:36] LABS: BASOPHILS # (AUTO) 0.1 K/uL (0.00-0.22); BASOPHILS % (AUTO) 0.6 % (0.0-2.0); EOSINOPHILS # (AUTO) 0.4 K/uL (0-0.4); EOSINOPHILS % (AUTO) 4.5 % (0.0-4.0); HEMATOCRIT 34.8 % (36-48); HEMOGLOBIN 11.7 g/dL (12.0-16.0); LYMPHOCYTES # (AUTO) 2.3 K/uL (2.5-16.5); LYMPHOCYTES % (AUTO) 28.4 % (20.5-51.1); MEAN CORPUSCULAR HEMOGLOBIN 30 pg (27-31); MEAN CORPUSCULAR HGB CONC 34 g/dL (33-37); MEAN CORPUSCULAR VOLUME 89.8 fL (80-94); MONOCYTES # (AUTO) 0.5 K/uL (0.8-1.0); MONOCYTES % (AUTO) 6.7 % (1.7-9.3); NEUTROPHILS # (AUTO) 4.8 K/uL (1.8-7.7); NEUTROPHILS % (AUTO) 59.8 % (42.2-75.2); PLATELET COUNT (AUTO) 348 K/uL (140-450); RED BLOOD CELL COUNT(AUTO) 3.88 MIL/uL (4.20-5.40); RED CELL DISTRIBUTION WIDTH 14.4 % (11.6-13.7)
[2022-08-25] MEDS: LEVOTHYROXINE 0.075 MG TAB PO SCH (06:40)
[2022-08-25] MEDS: LEVOTHYROXINE 0.1 MG TAB PO SCH (06:40)
[2022-08-25] MEDS: BLOOD GLUCOSE MONITORING 1 DEV DEV FS SCH ×3 (06:48→16:50)
[2022-08-25] MEDS: INSULIN LISPRO SLIDING SCALE 100 UNITS/ML VIAL SUBQ PRN ×2 (06:48→12:19)
--- NOTE | 2022-08-25 07:00 | NUR ---
OBTAINED BS; BS WAS 261, GAVE 6 UNITS. PATIENT TOLERATED WELL. ADMINISTERED SYNTHROID TO PATIENT. PATIENT TOLERATED WELL WITHOUT ANY ISSUES IN SWALLOWING. PATIENT'S BREATHING IS NORMAL WITH SYMMETRICAL RISE AND FALL OF CHEST. WILL CONTINUE TO OBSERVE PATIENT.
--- NOTE | 2022-08-25 07:30 | NUR ---
ENDORSED TO DAY SHIFT NURSE ADZE FOR CONTINUITY OF CARE. PATIENT IS STABLE.
[2022-08-25 07:39] LABS: ALBUMIN 2.4 g/dL (3.4-5.0); ANION GAP 13.5 (8-16); CARBON DIOXIDE 25.5 mmol/L (21-32); CREATININE 1.6 mg/dL (0.6-1.3); MAGNESIUM 1.3 mg/dL (1.8-2.4); TOTAL BILIRUBIN 0.3 mg/dL (0.0-1.0)
[2022-08-25] MEDS: ENOXAPARIN 30 MG/0.3 ML SYR SUBQ SCH (09:00)
[2022-08-25] MEDS ORDERED: MAG SULF 2000 MG/WATER PREMIX 50 ML IV PRN (09:50)
[2022-08-25] MEDS ORDERED: INSULIN LISPRO 100 UNITS/ML VIAL SUBQ SCH (10:00)
[2022-08-25] MEDS: PANTOPRAZOLE 40 MG TABEC PO SCH (10:09)
[2022-08-25] MEDS: lisinopriL 20 MG TAB PO SCH (10:10)
--- NOTE | 2022-08-25 13:43 | NUR ---
DISCHARGE PLANNING PATIENT IS A 57 YEAR OLD FEMALE ADMITTED TO THE [facility]/ED ON 08/24/2022 DUE TO HYPERGLYCEMIA. SW MEET WITH PATIENT AND HER ADULT SON AT BEDSIDE TO DISCUSS AND GATHER HER COLLATERAL INFORMATION. PATIENT WAS AWAKE AND ALERT ABLE TO GIVE ALL HER INFORMATION HER SELF. PATIENT REPORTED LIVING AT HOME WITH HER CHANTELL [phone] WHO IS HER EMERGENCY CONTACT AND MEDICAL DECISION MAKER. PER PATIENT SHE HAS PCP DR. TODD PASTOR AND A GOOD RELATIONSHIP WITH HER PCP WHICH SHE VISITS REGULARLY DUE TO HER DIABETES. LAST VISIT WITH PCP WAS ON 07/21/2022 AND HER NEXT SCHEDULED APPOINTMENT WILL BE ON 08/29/2022 AT 11:00AM. PER PATIENT SHE HAS NO A.D AND DECLINED INF. FORMS PROVIDED BY [facility]. PER PATIENT SHE HAS NO ISSUES GETTING OR TAKING HER MEDICATIONS THAT SHE GETS FROM THE [facility] IN [facility]. PER PATIENT SHE HAS NO DME AT HOME AND WANTS TO GO BACK HOME WHEN SHE IS READY AND STABLE TO DISCHARGE. PER PATIENT SHE WANTS TO GO HOME BUT IS OPEN FOR HOME HEALTH IF MD RECOMMENDS IT FOR HER SHE HAS NO PREFERENCES. SW THANKED PATIENT FOR HER INFORMATION. [facility]/CM WILL FOLLOW UP NEEDED.
[2022-08-25 16:00] VITALS: BP 117/72
[2022-08-25] MEDS ORDERED: LANTUS SUBQ (16:28)
[2022-08-25] MEDS ORDERED: HUMSLIDE SUBQ (16:28)
[2022-08-25] MEDS ORDERED: HUM SUBQ (16:28)
[2022-08-25] MEDS ORDERED: ATOR40TA PO (16:29)
[2022-08-25 17:16] VITALS: BP 117/72
--- NOTE | 2022-08-25 18:10 | NUR ---
patient discharged home. accompanied by family member. iv access and arm band removed. stable upon discharge.
[2022-08-25] MEDS ORDERED: INSULIN LANTUS 100 UNITS/ML 10 ML VIAL SUBQ SCH (21:00)
== END 2022-08-25 18:10 | disposition home or self-care (01) | DRG 469 ==
LOC: MED 17:46 → MTU 08-24 00:08
PROVIDERS: ADMIT Hospitalist; ATTEND Emergency Medicine
DX: N17.9 Acute kidney failure, unspecified (principal); E43 Unspecified severe protein-calorie malnutrition; E11.65 Type 2 diabetes mellitus with hyperglycemia; I10 Essential (primary) hypertension; E78.5 Hyperlipidemia, unspecified; Z20.822 Contact with and (suspected) exposure to COVID-19; Z79.4 Long term (current) use of insulin; Z79.84 Long term (current) use of oral hypoglycemic drugs; E87.1 Hypo-osmolality and hyponatremia; Z68.32 Body mass index [BMI] 32.0-32.9, adult
CPT/HCPCS: 36415; 71045; 80048; 80053; 81001; 82009; 82948; 83605; 83735; 85025; 87081; 87086; 96361; 96372; 96374; 99285; J1650; J1815; J3475; Q0092